=== PATIENT | male | born 1995 | race Two or more races ===

== ENCOUNTER 2023-01-02 23:03 | Emergency (ER) | payer OTHER ==
[~2023-01-02] VITALS: Ht 172.7 cm; Wt 79.5 kg
[2023-01-03 00:32] VITALS: BP 140/86
[2023-01-03 12:57] LABS: Hepatitis A Ab IgM Negative
[2023-01-03 12:58] LABS: Hepatitis B Core IgM Negative; Hepatitis C Antibody Negative (Negative)
== END 2023-01-03 00:34 | disposition home or self-care (01) ==
LOC: ER 23:03
DX: S60.812A Abrasion of left wrist, initial encounter (principal); W46.0XXA Contact with hypodermic needle, initial encounter; Y93.89 Activity, other specified; Y92.239 Unspecified place in hospital as the place of occurrence of the external cause; Y99.0 Civilian activity done for income or pay
CPT/HCPCS: 36415; 80074; 86703